=== PATIENT | female | born 1970 | race Caucasian/White ===

== ENCOUNTER → 2019-05-17 | Outpatient (CLI) | payer MEDICARE ==
--- NOTE | 2019-05-17 10:54 | MR ---
EXAMINATION TYPE: MR brain wo/w petronaine wo DATE OF EXAM: 05/17/2019 COMPARISON: Cervical spine 11/23/2012 HISTORY: 49-year-old female Paresthesia of skin / Disc disorder TECHNIQUE: Multiplanar, multisequence images of the brain and brainstem is performed without and wit h IV contrast, utilizing 7.5 mL intravenous Gadavist . Diffusion-weighted imaging is performed. Subsequent multiplanar, multisequence images of the cervical spine without contrast. FINDINGS: BRAIN: Diffusion weighted images demonstrate no evidence of a recent infarct or other diffusion abnormality. There is no extra-axial fluid collection collection. T2/FLAIR weighted sequences show some minimal patchy increased signal within the bilateral paramedian jessica and minimal changes in the periventricular region of the right occipital horn. The ventricular system and cisternal spaces are normal in size and appearance. The brain volume is a ge appropriate. Midline structures demonstrate normal morphology. The craniocervical junction appears within normal limits. Post contrast images demonstrate no abnormal enhancement. The dural venous sinuses appear patent. Mild mucosal thickening throughout the paranasal sinuses. Globes are intact rightward nasal septal de viation. CERVICAL SPINE: No craniocervical junction abnormality, predental space widening, or prevertebral soft tissue swellin g. Reversal of the normal cervical lordosis but with preserved alignment. There is a component of mild congenital spinal canal narrowing in the cervical spine with AP canal di mension of 1.0 cm. Mild multilevel degenerative disc disease characterized by variable mild disc desiccation and mild po sterior discussed by complex formation redemonstrated. Scattered mild facet and uncovertebral joint arthropathy especially mid to lower cervical spine. At C2-C3, mild facet arthropathy without significant canal or foraminal stenosis. At C3-C4, mild broad-based disc ossified complex with mild facet arthropathy. Slight accentuation of the mild congenital spinal canal narrowing with abutment of the central cord. No significant neural f oraminal stenosis. Overall similar to 2013. At C4-C5, minimal discussed by complex with facet and mild uncovertebral joint degenerative change. N o significant canal or foraminal stenosis. At C5-C6 broad-based disc osteophyte complex with contiguous uncovertebral joint arthropathy. Additio nal bilateral facet arthropathy. There is mild right neural foraminal stenosis and similar mild to mo derate spinal canal narrowing with abutment and slight flattening of the ventral cord at this level. There is motion artifact casting patchy increased signal within the mid to lower cervical spinal cord , refer to sagittal image 7 which happens to fall at this C5-C6 level. However, there is no correspon ding abnormal cord signal on the axial series. At C6-C7, mild broad-based disc osteophyte complex with facet arthropathy. Mild left neuroforaminal s tenosis without significant spinal canal stenosis. At C7-T1, facet arthropathy without significant canal or foraminal stenosis. No prevertebral or paravertebral soft tissue abnormality seen. COMBINED IMPRESSION: BRAIN: 1. Some minimal patchy increased signal in the bilateral paramedian jessica and in the periventricular r egion of the right occipital horn. Findings likely on the basis of trace burden of chronic small vess el ischemic disease. Follow-up if concern for early demyelinating disease. This is considered less li kiki. 2. No acute intracranial abnormality or enhancing lesions. 3. Mild chronic pansinus disease. CERVICAL SPINE: 1. Motion artifacts resulting in patchy signal over the mid to lower cervical spinal cord. Questionab le bright signal at the C5-C6 level shows no corresponding abnormality on the axial series. Motion ar tifact suspected rather than demyelinating change or myelopathic signal. Follow-up can be considered the reassess this level. 2. A component of mild congenital spinal canal narrowing with superimposed mild degenerative disc dis ease and scattered mild facet/uncovertebral joint arthropathy. 3. Overall findings are similar to 2013 with mild to moderate spinal canal narrowing at C5-C6 and mil d narrowing at C3-C4. There is abutment of the ventral cord but no cristofer cord compression or high-gra de canal compromise. 4. Variable mild neuroforaminal narrowing as outlined above.
== END | disposition home or self-care (01) ==
LOC: RADMRIMAIN 06:59
PROVIDERS: ATTEND Family Medicine
DX: M48.02 Spinal stenosis, cervical region (principal); M50.10 Cervical disc disorder with radiculopathy, unspecified cervical region; M46.92 Unspecified inflammatory spondylopathy, cervical region; R20.2 Paresthesia of skin
CPT/HCPCS: 70553; 72141; A9585

== ENCOUNTER → 2025-03-19 | Outpatient (CLI) | payer MEDICARE, OTHER ==
--- NOTE | 2025-03-19 10:04 | MM ---
Reason for Exam: Screening (asymptomatic). Last mammogram was performed 1 year(s) and 9 month(s) ago. Patient History: Menarche at age 11. First Full-Term at age 22. Postmenopausal. Risk Values: Andria 5 year model risk: 1.1%. NCI Lifetime model risk: 7.2%. Tissue Density: The breasts are almost entirely fatty. Findings: Analyzed By CAD. Right breast: There is no suspicious group of microcalcifications or new suspicious mass. Left breast: There is no suspicious group of microcalcifications or new suspicious mass. Benign-appearing calcifications left breast. Overall Assessment: Benign, BI-RAD 2 Management: Screening Mammogram of both breasts in [address] [facility] will attempt to contact patient to return for supplemental views and ultrasound if indicated. Patient should continue monthly self-breast exams. A clinical breast exam by your physician is recommended on an annual basis. This exam should not preclude additional follow-up of suspicious palpable abnormalities. Note on Andria scores and lifetime risk: 1. A Andria score greater than 3% is considered moderate risk. If this is the case, consider specialist referral to assess eligibility for a risk reducing agent. 2. If overall lifetime risk for the development of breast cancer is 20% or higher, the patient may qualify for future screening with alternating mammogram and breast MRI. [facility], , 03/19/2025 10:00 AM. Electronically signed and approved by: Davy Daly DO
== END | disposition home or self-care (01) ==
LOC: RADMAMWWP 09:11
PROVIDERS: ATTEND Family Medicine
DX: Z12.31 Encounter for screening mammogram for malignant neoplasm of breast (principal); R92.313 Mammographic fatty tissue density, bilateral breasts; Z78.0 Asymptomatic menopausal state
CPT/HCPCS: 77063; 77067